=== PATIENT | male | born 1930 | race Caucasian/White ===

== ENCOUNTER 2017-03-29 10:49 | Inpatient (IN) | payer MEDICARE ==
[2017-03-29] VITALS (370 sets, daily range): BP systolic 92–127; BP diastolic 57–104; PULSE 86–110; TEMP 97.2–98.3; O2SAT 40–100
[~2017-03-29] VITALS: Ht 175.3 cm; Wt 69.7 kg
[2017-03-29] MEDS ORDERED: CIPRODEX OT (12:47)
[2017-03-29] MEDS ORDERED: MULTI VITAMINS1 TAB PO (12:48)
[2017-03-29] MEDS ORDERED: K-DUR20 MEQ PO (12:49)
[2017-03-29] MEDS ORDERED: PROBIOTIC ACID1 EAC3 PO (13:03)
[2017-03-29] MEDS ORDERED: ULTRAM 50MG TAB50 MG PO (13:04)
[2017-03-29] MEDS ORDERED: DEMADEX10 MG PO (13:04)
[2017-03-29] MEDS ORDERED: TYLENOL 500MG500 MG PO (13:05)
[2017-03-29] MEDS ORDERED: VITAMIND3 5000 PO (13:06)
[2017-03-29 14:05] LABS: BASO % 0.2 % (0.0-2.0); EOS % 0.1 % (0-4.0); GRAN % 85.3 % (42.2-75.2); LYMPH # 1.1 (1.2-3.4); MEAN CELL VOLUME 101 fl (80.0-100.0); MEAN CORPUSCULAR HGB CONC 33 g/dl (33.0-37.0); MEAN PLATELET VOLUME 9.9 fl (7.4-10.4); MONO # 1.1 (0.1-0.6); MONO % 6.7 % (1.7-9.3); PLATELET COUNT 239 K/mm3 (130-400); RED BLOOD COUNT 3.57 M/mm3 (4.20-5.60); REDCELL DISTRIBUTION WIDTH-CV 12.8 % (11.5-14.5); WHITE BLOOD COUNT 16.4 K/mm3 (4.8-10.8)
[2017-03-29 14:07] LABS: HEMATOCRIT 36.1 % (42.0-52.0); HEMOGLOBIN 11.8 g/dl (13.5-18.0); MEAN CORPUSCULAR HEMOGLOBIN 33 pg (27.0-31.0)
[2017-03-29 14:08] LABS: CALCIUM 8.6 mg/dL (8.4-10.2); CREATININE, serum 1.02 mg/dL (0.66-1.25); MAGNESIUM 1.9 mg/dL (1.6-2.3); POTASSIUM 4.3 mmol/L (3.4-5.0)
[2017-03-29 14:40] LABS: TROPONIN-I 2.62 ng/mL (0.000-0.034)
[2017-03-30] VITALS (275 sets, daily range): BP systolic 85–117; BP diastolic 56–74; PULSE 88–101; TEMP 97.6–98.4; O2SAT 70–100
[2017-03-30 06:03] LABS: MEAN CELL VOLUME 97 fl (80.0-100.0); MEAN CORPUSCULAR HEMOGLOBIN 33 pg (27.0-31.0); MEAN CORPUSCULAR HGB CONC 34 g/dl (33.0-37.0); PLATELET COUNT 285 K/mm3 (130-400); RED BLOOD COUNT 3.63 M/mm3 (4.20-5.60); REDCELL DISTRIBUTION WIDTH-CV 12.8 % (11.5-14.5); WHITE BLOOD COUNT 14.2 K/mm3 (4.8-10.8)
[2017-03-30 06:09] LABS: HEMATOCRIT 35.3 % (42.0-52.0)
[2017-03-30 06:18] LABS: CALCIUM 8.2 mg/dL (8.4-10.2); CREATININE, serum 0.97 mg/dL (0.66-1.25); POTASSIUM 3.7 mmol/L (3.4-5.0)
[2017-03-30 06:29] LABS: TROPONIN-I 5.42 ng/mL (0.000-0.034)
[2017-03-31] VITALS (12 sets, daily range): BP systolic 91–164; BP diastolic 48–109; PULSE 84–106; TEMP 97.8–99.3
[2017-03-31 15:16] LABS: MEAN CELL VOLUME 100 fl (80.0-100.0); MEAN CORPUSCULAR HGB CONC 33 g/dl (33.0-37.0); MEAN PLATELET VOLUME 9.5 fl (7.4-10.4); PLATELET COUNT 290 K/mm3 (130-400); RED BLOOD COUNT 3.42 M/mm3 (4.20-5.60); REDCELL DISTRIBUTION WIDTH-CV 12.9 % (11.5-14.5); WHITE BLOOD COUNT 12.4 K/mm3 (4.8-10.8)
[2017-03-31 15:19] LABS: HEMATOCRIT 34.1 % (42.0-52.0); HEMOGLOBIN 11.3 g/dl (13.5-18.0); MEAN CORPUSCULAR HEMOGLOBIN 33 pg (27.0-31.0)
[2017-03-31 15:28] LABS: ADJUSTED CALCIUM 9.3 mg/dL (8.4-10.2); ALBUMIN 2.8 gm/dL (3.5-5.0); BILIRUBIN,TOTAL 0.5 mg/dL (0.0-1.0); CALCIUM 8.3 mg/dL (8.4-10.2); CREATININE, serum 1.13 mg/dL (0.66-1.25); TOTAL PROTEIN 6.2 gm/dL (6.4-8.2)
[2017-03-31 15:46] LABS: TROPONIN-I 2.2 ng/mL (0.000-0.034)
[2017-04-01 02:54] VITALS: BP 97/55; PULSE 93; TEMP 99
[2017-04-01 07:40] LABS: CALCIUM 8.4 mg/dL (8.4-10.2); CREATININE, serum 1.1 mg/dL (0.66-1.25); POTASSIUM 3.8 mmol/L (3.4-5.0)
[2017-04-01 08:23] VITALS: BP 106/57; PULSE 102; TEMP 98.6
[2017-04-01 11:10] VITALS: BP 103/62; PULSE 107; TEMP 98.6
[2017-04-01 16:31] VITALS: BP 92/50; PULSE 78; TEMP 98.2
[2017-04-01 20:02] VITALS: BP 84/47; PULSE 79; TEMP 98.4
[2017-04-01 23:36] VITALS: BP 85/56; PULSE 83; TEMP 97.9
[2017-04-02 03:52] VITALS: BP 99/60; PULSE 87; TEMP 98
[2017-04-02 07:01] LABS: BASO % 0.2 % (0.0-2.0); EOS # 0.1 (0.0-0.7); EOS % 0.6 % (0-4.0); GRAN # 10.1 (1.4-6.5); GRAN % 78.4 % (42.2-75.2); LYMPH # 1.4 (1.2-3.4); MEAN CELL VOLUME 100 fl (80.0-100.0); MEAN CORPUSCULAR HGB CONC 33 g/dl (33.0-37.0); MEAN PLATELET VOLUME 9.8 fl (7.4-10.4); MONO # 1.2 (0.1-0.6); MONO % 8.9 % (1.7-9.3); PLATELET COUNT 332 K/mm3 (130-400); RED BLOOD COUNT 3.45 M/mm3 (4.20-5.60); WHITE BLOOD COUNT 12.9 K/mm3 (4.8-10.8)
[2017-04-02 07:03] LABS: HEMATOCRIT 34.5 % (42.0-52.0); HEMOGLOBIN 11.3 g/dl (13.5-18.0); MEAN CORPUSCULAR HEMOGLOBIN 33 pg (27.0-31.0)
[2017-04-02 07:15] LABS: CALCIUM 8.5 mg/dL (8.4-10.2); CREATININE, serum 1.2 mg/dL (0.66-1.25); POTASSIUM 4.4 mmol/L (3.4-5.0)
[2017-04-02 08:50] VITALS: BP 96/59; PULSE 88; TEMP 98.4
[2017-04-02] MEDS ORDERED: DIGITEK0.125 MG PO (09:24)
[2017-04-02] MEDS ORDERED: LIPITOR 40MG TA40 MG PO (09:24)
[2017-04-02] MEDS ORDERED: BRILINTA90 MG PO (09:24)
[2017-04-02] MEDS ORDERED: TOPROL XL 25MG25 MG PO (09:25)
[2017-04-02] MEDS ORDERED: VASOTEC 2.2.5 MG/TAB PO (09:26)
[2017-04-02] MEDS ORDERED: ASPIRIN E.C. 8181 MG PO (09:26)
[2017-04-02] MEDS ORDERED: ALDACTONE50 MG PO (09:26)
[2017-04-02] MEDS ORDERED: DEMADEX10 MG PO (09:28)
== END 2017-04-02 12:20 | disposition home or self-care (01) | DRG 246 ==
LOC: MEDICAL 10:49 → ICU 17:11 → MEDICAL 03-30 15:11 → ICU 03-30 15:51 → MEDICAL 04-02 12:20
PROVIDERS: Internal Medicine Cardiovascular Disease; Physician Assistant
PROC: 027034Z Dilation of Coronary Artery, One Artery with Drug-eluting Intraluminal Device, Percutaneous Approach (ICD-10-PCS; principal; 2017-03-29)
PROC: B2111ZZ Fluoroscopy of Multiple Coronary Arteries using Low Osmolar Contrast (ICD-10-PCS; 2017-03-29)
DX: I21.4 Non-ST elevation (NSTEMI) myocardial infarction (principal); I50.23 Acute on chronic systolic (congestive) heart failure; I48.91 Unspecified atrial fibrillation; Z87.891 Personal history of nicotine dependence
CPT/HCPCS: 99223-AI; 99232-AI; 99233-AI; 99239; C1760; C1769; C1874; C1887; C1894; C9600; J0583; J1650; J1940; J3010; Q9967

== ENCOUNTER → 2019-03-18 | Outpatient (CLI) | payer MEDICARE ==
[~2019-03-18] MED LIST: ALDACTONE50 MG PO; ASPIRIN E.C. 8181 MG PO; BRILINTA90 MG PO; CIPRODEX OT; DEMADEX10 MG PO; DIGITEK0.125 MG PO; K-DUR20 MEQ PO; LIPITOR 40MG TA40 MG PO; MULTI VITAMINS1 TAB PO; PROBIOTIC ACID1 EAC3 PO; TOPROL XL 25MG25 MG PO; TYLENOL 500MG500 MG PO; ULTRAM 50MG TAB50 MG PO; VASOTEC 2.2.5 MG/TAB PO; VITAMIND3 5000 PO
== END ==
LOC: MHCPAIN 12:47
DX: G89.29 Other chronic pain (principal); M47.817 Spondylosis without myelopathy or radiculopathy, lumbosacral region; M53.3 Sacrococcygeal disorders, not elsewhere classified
CPT/HCPCS: G0463

== ENCOUNTER → 2019-03-26 | Outpatient (CLI) | payer MEDICARE | LOC: MHCPAIN 13:52 | DX: M47.817 Spondylosis without myelopathy or radiculopathy, lumbosacral region (principal); M54.16 Radiculopathy, lumbar region ==

== ENCOUNTER → 2019-04-30 | Outpatient (CLI) | payer MEDICARE | LOC: MHCPAIN 13:42 | DX: M47.817 Spondylosis without myelopathy or radiculopathy, lumbosacral region (principal); M54.16 Radiculopathy, lumbar region; G89.29 Other chronic pain | CPT/HCPCS: G0463; J1100; J3010 ==

== ENCOUNTER → 2019-05-07 | Outpatient (CLI) | payer MEDICARE | LOC: MHCPAIN 11:53 | DX: M47.817 Spondylosis without myelopathy or radiculopathy, lumbosacral region (principal); M54.16 Radiculopathy, lumbar region | CPT/HCPCS: J1100; J3010 ==